=== PATIENT | male | born 1995 | race African-American/Black ===

== ENCOUNTER 2018-09-24 10:21 | Emergency (ER) | payer BC, OTHER ==
--- NOTE | 2018-09-24 11:06 | RAD ---
Radiograph right foot 3 views: DATE: 09/24/2018 Time: 10:44 AM HISTORY: 23-year-old male with right foot swelling and pain. COMPARISON: None available FINDINGS: There is an oblique fracture of the proximal metaphysis of the fourth metatarsal. It extends to the a djacent intermetatarsal junctions on the right and left, but does not appear to extend to the tarsometatarsal joint. No significant displacement or callus identified. No dislocation. IMPRESSION: Oblique, nondisplaced fracture of the proximal metaphysis of the fourth metatarsal, of indeterminate age, either acute or subacute.
== END 2018-09-24 11:42 | disposition home or self-care (01) ==
LOC: ERS 10:21
DX: S92.344A Nondisplaced fracture of fourth metatarsal bone, right foot, initial encounter for closed fracture (principal); F90.9 Attention-deficit hyperactivity disorder, unspecified type; F84.0 Autistic disorder; Z79.899 Other long term (current) drug therapy; X58.XXXA Exposure to other specified factors, initial encounter
CPT/HCPCS: 29515